=== PATIENT | female | born 2000 | race Caucasian/White ===

== ENCOUNTER 2019-03-18 15:52 | Inpatient (IN) ==
[2019-03-18 16:37] LABS: Basophils # (auto) 0.06 K/uL (0-0.2); Basophils % (auto) 1.1 %; Eosinophils # (auto) 0.31 K/uL (0-0.5); Eosinophils % (auto) 5.5 %; Hematocrit (blood only) 39.5 % (37-47); Hemoglobin 13.4 g/dL (12.0-16.0); Immature Granulocytes # (auto) 0.01 K/uL (0.00-0.02); Immature Granulocytes % (auto) 0.2 %; Lymphocytes # (auto) 1.66 K/uL (1.2-3.4); Lymphocytes % (auto) 29.6 %; Mean Corpuscular Hemoglobin 34.2 pg (25-34); Mean Corpuscular Hgb Conc 33.9 g/dL (32-36); Mean Corpuscular Volume 100.8 fL (80-100); Mean Platelet Volume 10.4 fL (7.4-10.4); Monocytes # (auto) 0.72 K/uL (0.11-0.59); Monocytes % (auto) 12.8 %; Neutrophils # (auto) 2.85 K/uL (1.4-6.5); Neutrophils % (auto) 50.8 %; Platelet Count 212 K/uL (130-400); RDW Coefficient of Variation 11.9 % (11.5-14.5); RDW Standard Deviation 43.4 fL (36.4-46.3); Red Blood Count 3.92 M/uL (4.2-5.4); White Blood Count 5.61 K/uL (4.8-10.8)
[2019-03-18 16:54] LABS: Alanine Aminotransferase 112 U/L (12-78); Albumin Level 3.5 gm/dl (3.4-5.0); Aspartate Aminotransferase 16 U/L (15-37); BUN Creatinine Ratio 25.2 (10-20); Blood Urea Nitrogen 15 mg/dl (7-18); Calcium 8.4 mg/dl (8.5-10.1); Carbon Dioxide 26 mmol/L (21-32); Chloride 108 mmol/L (98-107); Creatinine Clr Calc Pharmacy 115.4 ml/min; Est GFR (African American) > 150.0; Est GFR (Non-African American) 130.7; Glucose 81 mg/dl (70-99); Potassium 4.2 mmol/L (3.5-5.1); Sodium 138 mmol/L (136-145)
[2019-03-18 16:56] LABS: Acetaminophen 88 ug/ml (10-30); Salicylate < 1.7 mg/dl (2.8-20)
[2019-03-18] MEDS ORDERED: ACETYLCYSTEINE IV ONE ×3 (17:01→21:00)
[2019-03-18] MEDS ORDERED: DEXTROSE 5% IV ONE ×3 (17:01→21:00)
[2019-03-18 17:04] LABS: Albumin Globulin Ratio 1.2 (0.9-2); Alkaline Phosphatase 82 U/L (45-117); Bilirubin,Total 0.5 mg/dl (0.2-1); Globulin 2.9 gm/dl (2.5-4.0); Total Protein 6.4 gm/dl (6.4-8.2)
[2019-03-18 17:28] LABS: Pregnancy Test, Urine Negative (Negative)
[2019-03-18 17:32] LABS: Appearance Urine Clear (Clear); Bilirubin Urine Negative (Negative); Blood Urine Negative (Negative); Color Urine Yellow; Glucose Urine UA Negative (Negative); Ketones Urine Negative (Negative); Leukocyte Esterase Urine Negative (Negative); Nitrite Urine Negative (Negative); Protein Urine Negative (Negative); Specific Gravity Urine >= 1.030 (1.000-1.030); Urobilinogen Urine Negative (Negative)
[2019-03-18 17:50] LABS: Amphetamines+Metham, Urine Pos (Neg); Barbiturates, Urine Neg (Neg); Benzodiazepine, Urine Neg (Neg); Cocaine, Urine Neg (Neg); MDMA (Ecstacy), Urine Neg (Neg); Methadone, Urine Neg (Neg); Opiate, Urine Neg (Neg); Phencyclidine, Urine Neg (Neg)
--- NOTE | 2019-03-18 18:21 | History & Physical Report ---
Date of Service March 18, 2019 Assessment & Plan (1) Overdose by acetaminophen: Ms Fernanda Angeles is a 18 year old woman who comes in today after an overdose on acetaminophen and possibly naproxen Overdose Not clear what and how much she took patient refuses to give truthful answers Acetaminophen level elevated at 88, ASA negative, Urine tox screen positive for amphetamines and marijuana Patient does admit to taking acetaminophen in an effort to harm herself but tells me she only took 3-5 though mom thinks it may be more ALT elevated to 112 AST WNL ED consulted poison control and appropriately started patient on NAC, will receive loading dose here in ED and will follow 21 hour regimen moving forward First dose 150 mg/kg to be administered over one hour Second dose immediately following 50mg/kg to be administered over 4 hours Final dose 100 mg/kg to be administered over 16 hours Will continue to check LFT's to make sure she does not need further treatment. EKG ordered Depression/Suicide Attempt Appears to be a suicide attempt, on Suicide precautions Denies current SI Psychiatry consulted to evaluate patient when medically stable, likely tomorrow F/E/N:REgular diet DVT PPx: Lovenox Dispo: Med/Surg until medically stable and off NAC then possible admission to psychiatry based on their recommendations. History of Present Illness Chief Complaint: Tylenol Overdose Primary Care Provider: NO PCP Fernanda Angeles is a 18 year old young woman with a PMH significant for depression who presents today for an intentional drug overdose. Patient very reticent to speak, not answering in more than one or two words. She tells me she took "about five" tylenol. Denies anything else, denies any history of substance use, tells me she feels fine and wants to go home. She does admit to trying to harm herself, she said that she is getting over a break up with her long time boyfriend and took the pills to try to hurt herself. She is not sure if she wanted to kill herself. She initally did not tell anyone but then told her mother. She tells me she feels safe at home and that she wants her mom involved in her care. I spoke to the patient's mother separately from the patient and she tells me that she took aleve and ASA as well as tylenol and that she also uses drugs regularly including methamphetamine, benzos and marijuana. She also has a history of depression initially diagnosed while inpatient at [facility] when she was [age] in the fall of 2016. She at that time was physically threatening and aggressive with her mother and required inpatient treatment for being out of her head. She was sent home with a script for lexapro but refused to take these because they made her tired. She has no hisory of previous suicide attempts or any self harm. The hospitalization mentioned above is her only one. She has no other past medical history and takes only control. She was living with boyfriend until recently, but apparently has been using methamphetamine and being promiscuous with other men while boyfriend was at work and they broke up. She is now living with Mom. Allergies Allergy/AdvReac Type Severity Reaction Status Date / Time No Known Allergies Allergy Verified 03/18/19 16:24 Past Med/Surg History Medical History Depression Surgical History No pertinent past surgical history Family History Other No pertinent family history Review of Systems Review of Systems: Constitutional: No fevers, chills, sweats, Eyes: No vision issues ENMT: No problems reported, no congestion or rhinorrhea Resp: Breathing comfortably, no concerns Cardio: No chest pain, no palpitations, no presyncope/syncope GI: No belly pain, no N/V/D/C Integumentary: No rashes reported Psych: Endorses depression and feeling down over this breakup and trying to harm herself by taking pills. Physical Exam Physical Exam: Constitutional: Patient curled in a ball facing away from me declines wanting to participate in any exam agreed to me performing exam as long as she didn't have to move, exam is unfortunately limited Eyes: Pupils equal round and reactive to light and accomodation, Anicteric Sclerae, Respiratory: Chest expansion symmetric breathing rate normal, no respiratory distress lungs clear to auscultation Cardiovascular: Regular Rate and Rhythm, distal pulses intact, no murmurs rubs, skips, or gallops, No lower limb edema GI: Abdomen soft/nontender Psychiatric: Depressed mood and affect, psychomotor retardation, not tearful, Denies current SI or HI. Says she regrets doing what she did and just wants to go home with her mom. Results & Data Vital Signs (Past 12 Hours) Vital Signs Temp Pulse Pulse Resp BP BP Pulse Ox 03/18/19 17:30 74 17 107/69 99 03/18/19 17:00 86 17 100/73 98 03/18/19 16:30 86 16 97/65 L 97 03/18/19 16:06 36.3 C L 87 16 104/59 L 96 Supervising Physician Co-Signing Physician Notes I personally interviewed and examined the patient. I agree with history of present illness , physical exam and plan mentioned by medical records tech above, I also performed my own history taking and examination. Myself and Dr. Lugo together formulated the plan mentioned above. Past medical history and review of system has been obtained by myself I reviewed all pertinent labs and studies Reviewed current medications I discussed and formulated of the assessment and plan mentioned above. Please refer to the Summary mentioned below. 18 years old female with past medical history of psychiatric illnesses but no past medical history of suicidal attempt or suicidal ideation, recently broke up with her boyfriend, today she was texting her boyfriend and her mother, she kept saying she cannot do this she cannot live with this anymore as she was breaking up with her boyfriend, finally her mom told her that do not do anything wrong, she texted her mother it is too late. After that she kept texting the boyfriend but not the mother,, suddenly the boyfriend texted the mother that she has done something wrong and somebody needs to check on her. The mother called the neighbors who went to check on her and found empty bottles around her. She was brought to the ED with a suicide attempt, initially she said that she took only Tylenol but later on her urine drug screen was positive for amphetamines and marijuana mother stated that she possibly also took naproxen, Tylenol level was elevated at 88, ASA level was negative, ALT was elevated at 112, she was started on N-acetylcysteine, placed on suicide precautions, 2D echo was ordered to monitor QTC for fear of possibility that she ingested other stuff as well. Psych consult placed General Appearance: not in acute distress Eyes: normal Sclerae, extraocular muscle intact ENT: hearing grossly normal Neck: supple Respiratory/Chest: normal air entry bilateral ,no respiratory distress, no accessory muscle use Cardiovascular: regular rate, rhythm, no murmur Abdomen: non tender, soft, no masses Extremities: no edema musculoskeletal: no significant swelling or inflammation in any joint Neurologic/Psychiatric: Awake alert oriented times place and person moves all extremities sensation intact cranial nerves II-12 appear to be intact Skin: normal color, warm/dry, no rash Ella Coker MD, [facility] hospitalist group Resident Activity Tracking Resident Involvement: Resident Care Provided Care Provided: Adult Hospital Medicine
[2019-03-18] MEDS ORDERED: ACETYLCYSTEINE IV SCH (18:41)
[2019-03-18] MEDS ORDERED: DEXTROSE 5% IV SCH (18:41)
[2019-03-18] MEDS ORDERED: AcetylCYSTEINE IV 21 HR REGIMEN (>40KG) IV STA (20:20)
[2019-03-18] MEDS ORDERED: SODIUM CHLORIDE 0.9% 1000ML 1,000 ML IV ONE (20:20)
[2019-03-18] MEDS ORDERED: ENOXAPARIN INJ 40 MG/0.4 ML SYR SQ SCH (21:00)
[2019-03-19] MEDS ORDERED: DEXTROSE 5% IV ONE (01:15)
[2019-03-19] MEDS ORDERED: ACETYLCYSTEINE IV ONE (01:15)
--- NOTE | 2019-03-19 08:51 | Psychiatric Consultation ---
Date of Consultation March 19, 2019 Impression / Recommendations Impression 18-year-old uncooperative female with reported history of depression and substance abuse presently status post polydrug overdose on NAC protocol for elevated acetaminophen level and LFT elevation. Overdose appears likely a suicide attempt which has been reported by patient's mother and patient's own self-report per hospitalist admission note (she indicated that she had taken Tylenol in an effort to harm herself.) She has been consistently uncooperative and minimizing throughout her stay so far. She demonstrates impaired judgment and some mild behavioral dyscontrol on psychiatric interview today. As she is an unreliable historian, she will require at a minimum a period of monitoring to reduce her risk for further self-harm. She will likely require psychiatric hospitalization following medical clearance. As such, if she attempts to leave the hospital, we will pursue a 302 involuntary commitment order. She should be maintained on a one-to-one at all times. (1) Suicide attempt: (2) Overdose: Encounter type: initial encounter Injury intent: intentional self-harm Qualified Code(s): T50.902A - Poisoning by unspecified drugs, medicaments and biological substances, intentional self-harm, initial encounter Risk Factors Assessment Male: No : Yes Health Problems: No Substance Use Disorders: Yes Previous Attempt: No Previous Psychiatric Hospitalization: Yes CPT Code 63891 Psych History Identifying Data Fernanda is a 18-year-old female with a reported history of depression and substance abuse requiring 1 prior psychiatric hospitalization to the [facility], [place] in 2017 (reportedly for agitation) who is seen for psychiatric consultation status post polydrug overdose on 03/18/2019. Unfortunately patient is highly uncooperative with the interview today and most information is obtained from admission H&P. I did attempt to reach patient's mother, Kerrie, at [phone] to expand database but was unable to reach her at time of this writing. Chief Complaint " I am fucking fine and I am getting out of here. I am not talking about it anymore". History of Present Illness Per hospitalist admission H&P 03/18/2019 Fernanda Angeles is a 18 year old young woman with a PMH significant for depression who presents today for an intentional drug overdose. Patient very reticent to speak, not answering in more than one or two words. She tells me she took "about five" tylenol. Denies anything else, denies any history of substance use, tells me she feels fine and wants to go home. She does admit to trying to harm herself, she said that she is getting over a break up with her long time boyfriend and took the pills to try to hurt herself. She is not sure if she wanted to kill herself. She initally did not tell anyone but then told her mother. She tells me she feels safe at home and that she wants her mom involved in her care. I spoke to the patient's mother separately from the patient and she tells me that she took aleve and ASA as well as tylenol and that she also uses drugs regularly including methamphetamine, benzos and marijuana. She also has a history of depression initially diagnosed while inpatient at [facility] when she was [age] in the fall of 2016. She at that time was physically threatening and aggressive with her mother and required inpatient treatment for being out of her head. She was sent home with a script for lexapro but refused to take these because they made her tired. She has no hisory of previous suicide attempts or any self harm. The hospitalization mentioned above is her only one. She has no other past medical history and takes only control. She was living with boyfriend until recently, but apparently has been using methamphetamine and being promiscuous with other men while boyfriend was at work and they broke up. She is now living with Mom. Patient did have an elevated Tylenol level at 88 at 1618 on 03/18/2019 as well as a small LFT elevation with ALT of 112. She is being treated with NAC protocol. She had a mildly prolonged QTc at 489. Toxicology panel positive for amphetamines and marijuana. Urine test negative. Per Dr. Coker's documentation on admission, patient has no known prior history of suicide attempt. Earlier on day of presentation had been texting her mother and boyfriend indicating that she cannot live like this anymore and was breaking up with her boyfriend. Boyfriend later texted mother that patient had done something wrong and needed checked on. Mother called neighbors to check on her and reportedly found empty bottles around her at which point she was brought to ED. Initially patient stated she took only Tylenol. Mother indicated that she possibly also took naproxen. On interview this morning patient is extremely uncooperative. She repeatedly turns away from me in her bed. She is largely noncommunicative apart from intermittent yelling stating that she does not want to talk about it anymore, that she has already talked about these things with other people, that she is fine, that she is getting out of here, that she wants her cell phone and her mother. She uses a fair amount of profanity while she is yelling and demonstrates some behavioral dyscontrol slamming objects and drawers nearby in an apparent display of anger. She refused to answer my questions about her intent in taking the overdose. She refused to answer questions about ongoing suicidality. She refused to answer any questions about circumstances at home, physical symptomatology, or thoughts of how she might be helped. She refused to answer any questions about substance abuse. She refused to answer any questions about her past mental health history. Shortly after I left her room I was contacted by the psychiatric liaison nurse who indicated that nursing was calling about the patient indicating that she was threatening to leave and refusing her Mucomyst. I attempted to reach patient's mother via phone but unfortunately was unable to contact her directly. Past Psychiatric History Current Psychiatric Diagnosis: None Outpatient Services: None known Previous Psych Admissions: 1 prior psychiatric hospitalization in 2017 at the [facility] [place], possibly for agitation associated with substance abuse. Started on Lexapro but reportedly noncompliant Describe Attempts in the Past: None known Past Medication Trials: Lexapro reportedly started at the [facility] [place] in 2017 however she was noncompliant Additional Notes: Patient is not cooperative in providing psychiatric history Allergies Allergy/AdvReac Type Severity Reaction Status Date / Time No Known Allergies Allergy Verified 03/18/19 16:24 Home Medications Home Medications Medication Instructions Recorded Confirmed Type Unobtainable 03/19/19 03/19/19 History Family History Unknown. Patient refuses to participate Substance Abuse History Patient has a known history of polysubstance abuse. She is unwilling to describe this morning. UDS positive for amphetamines and marijuana on presentation. Personal History Living Arrangements Comments: Reportedly recently living with boyfriend, now living with mother Marital Status: Single Beliefs That Will Affect Care: None Psychological Trauma History Comment: Unknown Patient History Medical History Depression Surgical History No pertinent past surgical history Family History Other No pertinent family history Social History Preferred Language: Occitan Communication Ability: Effective Electrician Sound Required: No Beliefs That Will Affect Care: None Current Living Situation: Parent Other Information That Helps Us Care for You: No Feels Safe at Home: Yes Safety Concerns: Feels Safe At This Time Smoking Status: Current every day smoker Tobacco Type: e-cigarettes ; Do You Dip or Chew Tobacco: No ; Second Hand Exposure: No ; Tobacco Cessation Education Requested by Patient: No Hx Alcohol Use: No (Denies) Hx Substance Use: No (Denies) Physical Exam Psychiatric: Orientation: + guarded; + uncooperative Apperance: + disheveled Eye Contact: + poor eye contact Motor Behavior: no abnormal motor movements Minimal spontaneous speech. She does yell at times at which point speech is clear, loud Affect: + angry affect She refuses to characterize mood Thought Process: + perseveration and + concrete thought process Thought Content: + preoccupation (Focused on going home. Minimizes care needs) She refuses to respond to questions about suicidality No outward evidence of response to internal stim however cannot be ruled out at this time Cognition: + attention not intact Unable to evaluate based on level of participation Appears poor Judgement: + poor judgement Vital Signs (Past 24 Hours): Last Vital Signs Temp 36.4 C L 03/18/19 23:28 Pulse 78 03/19/19 07:49 Resp 14 03/19/19 07:49 BP 109/73 03/19/19 07:49 Pulse Ox 98 03/19/19 07:49 Review of Systems Patient is non-participatory in review of systems Results & Data Laboratory Results Laboratory Results - last 24 hr 03/18/19 03/18/19 03/18/19 16:18 16:18 16:18 WBC 5.61 RBC 3.92 L Hgb 13.4 Hct 39.5 MCV 100.8 H MCH 34.2 H MCHC 33.9 RDW Std Deviation 43.4 RDW Coeff of Loly 11.9 Plt Count 212 MPV 10.4 Immature Gran % (Auto) 0.2 Neut % (Auto) 50.8 Lymph % (Auto) 29.6 [place] % (Auto) 12.8 Eos % (Auto) 5.5 Baso % (Auto) 1.1 Immature Gran # (Auto) 0.01 Neut # (Auto) 2.85 Lymph # (Auto) 1.66 [place] # (Auto) 0.72 H Eos # (Auto) 0.31 Baso # (Auto) 0.06 Sodium 138 Potassium 4.2 Chloride 108 H Carbon Dioxide 26 Anion Gap 4.0 BUN 15 Creatinine 0.62 Est Cr Clr Drug Dosing 115.4 Est GFR ( Amer) > 150.0 Est GFR (Non-Af Amer) 130.7 BUN/Creatinine Ratio 25.2 H Glucose 81 Calcium 8.4 L Total Bilirubin 0.5 AST 16 ALT 112 H Alkaline Phosphatase 82 Total Protein 6.4 Albumin 3.5 Globulin 2.9 Albumin/Globulin Ratio 1.2 TSH 1.050 Urine Color Urine Appearance Urine pH Ur Specific [place] Urine Protein Urine Glucose (UA) Urine Ketones Urine Blood Urine Nitrite Urine Bilirubin Urine Urobilinogen Ur Leukocyte Esterase Urine Test Salicylates < 1.7 L Urine Opiates Screen Ur Methadone, Qual Acetaminophen 88 H Urine Barbiturates Ur Phencyclidine (PCP) U Amphetamines Confirm U Amphetamin/Meth Scrn U Methamphetamin Confrm MDMA (Ecstasy) Screen U Benzodiazepines Scrn Ur Cocaine Metabolite U Marijuana (THC) Screen U Marijuana THC Carboxy Drug Screen Comment Ethyl Alcohol mg/dL 03/18/19 03/18/19 03/18/19 16:18 17:00 17:00 WBC RBC Hgb Hct MCV MCH MCHC RDW Std Deviation RDW Coeff of Loly Plt Count MPV Immature Gran % (Auto) Neut % (Auto) Lymph % (Auto) [place] % (Auto) Eos % (Auto) Baso % (Auto) Immature Gran # (Auto) Neut # (Auto) Lymph # (Auto) [place] # (Auto) Eos # (Auto) Baso # (Auto) Sodium Potassium Chloride Carbon Dioxide Anion Gap BUN Creatinine Est Cr Clr Drug Dosing Est GFR ( Amer) Est GFR (Non-Af Amer) BUN/Creatinine Ratio Glucose Calcium Total Bilirubin AST ALT Alkaline Phosphatase Total Protein Albumin Globulin Albumin/Globulin Ratio TSH Urine Color Urine Appearance Urine pH Ur Specific [place] Urine Protein Urine Glucose (UA) Urine Ketones Urine Blood Urine Nitrite Urine Bilirubin Urine Urobilinogen Ur Leukocyte Esterase Urine Test Negative Salicylates Urine Opiates Screen Neg Ur Methadone, Qual Neg Acetaminophen Urine Barbiturates Neg Ur Phencyclidine (PCP) Neg U Amphetamines Confirm U Amphetamin/Meth Scrn Pos H U Methamphetamin Confrm MDMA (Ecstasy) Screen Neg U Benzodiazepines Scrn Neg Ur Cocaine Metabolite Neg U Marijuana (THC) Screen Pos H U Marijuana THC Carboxy Drug Screen Comment Ethyl Alcohol mg/dL < 3.0 03/18/19 03/18/19 17:00 17:00 WBC RBC Hgb Hct MCV MCH MCHC RDW Std Deviation RDW Coeff of Loyl Plt Count MPV Immature Gran % (Auto) Neut % (Auto) Lymph % (Auto) [place] % (Auto) Eos % (Auto) Baso % (Auto) Immature Gran # (Auto) Neut # (Auto) Lymph # (Auto) [place] # (Auto) Eos # (Auto) Baso # (Auto) Sodium Potassium Chloride Carbon Dioxide Anion Gap BUN Creatinine Est Cr Clr Drug Dosing Est GFR ( Amer) Est GFR (Non-Af Amer) BUN/Creatinine Ratio Glucose Calcium Total Bilirubin AST ALT Alkaline Phosphatase Total Protein Albumin Globulin Albumin/Globulin Ratio TSH Urine Color Yellow Urine Appearance Clear Urine pH 6.0 Ur Specific [place] >= 1.030 Urine Protein Negative Urine Glucose (UA) Negative Urine Ketones Negative Urine Blood Negative Urine Nitrite Negative Urine Bilirubin Negative Urine Urobilinogen Negative Ur Leukocyte Esterase Negative Urine Test Salicylates Urine Opiates Screen Ur Methadone, Qual Acetaminophen Urine Barbiturates Ur Phencyclidine (PCP) U Amphetamines Confirm Pending U Amphetamin/Meth Scrn U Methamphetamin Confrm Pending MDMA (Ecstasy) Screen U Benzodiazepines Scrn Ur Cocaine Metabolite U Marijuana (THC) Screen U Marijuana THC Carboxy Pending Drug Screen Comment Pending Ethyl Alcohol mg/dL Medications Administered Enoxaparin Sodium (Lovenox) 40 mg SQ Q24H MARIIA Stop: 04/17/19 20:59 Last Admin: 03/18/19 21:45 Dose: Not Given Documented by: [id number] Acetylcysteine 5,120 mg/ (Dextrose) 1,025.6 mls @ 62.5 mls/hr IV 0115 ONE; Protocol Stop: 03/19/19 17:39 Last Infusion: 03/19/19 08:15 Dose: 0 mls/hr Documented by: [id number] Infusion: 03/19/19 06:07 Dose: 62.5 mls/hr Documented by: [id number] Admin: 03/18/19 23:21 Dose: 62.5 mls/hr Documented by: [id number] Coding Level of Care Code 33525 [facility] Intl Hosp Care Lvl 2 Diagnoses Suicide attempt T14.91XA Overdose T50.902A Encounter type: initial encounter Injury intent: intentional self-harm Time Spent (min) 60
[2019-03-19 11:45] LABS: INR 1.2 (0.9-1.1); Prothrombin Time 12.1 Seconds (9.0-12.0)
--- NOTE | 2019-03-19 12:07 | Emergency Department Note ---
Entered by Macy Cummins acting as a scribe for Sarabjit Mcginnis MD History of Present Illness General Chief complaint: Overdose (Intentional) Stated complaint: MENTAL HEALTH Time Seen by Provider: 03/18/19 15:59 Source: patient and family (mother) History of Present Illness Onset (ago): minute(s) (prior to arrival) Location: head (general) Pain Consistency: + other (episode) Quality: + other (intentional overdose) Associated symptoms: + denies other symptoms (abdominal pain, previous suicide attempts), + loss of appetite and + other (sleeping less than normal) The patient is a 18 year old female who presents to the Emergency Room with complaints of an episode of intentional overdose just prior to arrival. The patient states she tried to hurt herself by taking aspirin and Tylenol, approximately 5 pills each. She denies previous attempts to hurt herself. The patient's mother states this is likely due the patient's recent breakup with her boyfriend. The patient's mother reports the patient has a history of depression, and is prescribed medication but refuses to take them. The patient reports she is sleeping and eating less than normal. She denies alcohol and drug use. She denies abdominal pain. The patient denies access to any knives, weapons, or guns. She states her last normal menstrual period occurred last week. Home Medications Home Medications Medication Instructions Recorded Confirmed Type Unobtainable 03/19/19 03/19/19 History Allergies Allergy/AdvReac Type Severity Reaction Status Date / Time No Known Allergies Allergy Verified 03/18/19 16:24 Past Med/Surg History Medical History Depression Surgical History No pertinent past surgical history Family History Other No pertinent family history Social History Preferred Language: Romansh Communication Ability: Effective [employer] Teacher Required: No Beliefs That Will Affect Care: None Current Living Situation: Parent Other Information That Helps Us Care for You: No Feels Safe at Home: Yes Safety Concerns: Feels Safe At This Time Smoking Status: Current every day smoker Tobacco Type: e-cigarettes ; Do You Dip or Chew Tobacco: No ; Second Hand Exposure: No ; Tobacco Cessation Education Requested by Patient: No Hx Alcohol Use: No (Denies) Hx Substance Use: No (Denies) Review of Systems See HPI for pertinent positives & negatives. and A total of 10 systems reviewed and were otherwise negative Physical Exam Vital Signs Vital Signs - 24 hr 03/18/19 16:06 03/18/19 16:30 03/18/19 17:00 Temperature 36.3 C L Temperature Source Oral Pulse Rate 87 Pulse Rate [Apical] 86 86 Pulse Rhythm Regular Pulse Rhythm [Apical] Regular Regular Pulse Strength Normal Respiratory Rate 16 16 17 Respiratory Effort / Characteristics Non-Labored Spontaneous Non-Labored Spontaneous Non-Labored Spontaneous Respiratory Depth Normal Normal Normal Respiratory Pattern Regular Regular Regular Blood Pressure 104/59 L Blood Pressure [Right Arm] 97/65 L 100/73 Blood Pressure Mean 74 Blood Pressure Mean [Right Arm] 75 82 Blood Pressure Position Lying Pulse Oximetry 96 97 98 Oxygen Delivery Method Room Air Room Air Room Air Sepsis Recent Fever Within 48 Hours No Sepsis New/Unexplained Change in Mental Status No Sepsis Action Taken by Nursing No Action Required 03/18/19 17:30 03/18/19 18:30 Temperature Temperature Source Pulse Rate Pulse Rate [Apical] 74 107 H Pulse Rhythm Pulse Rhythm [Apical] Regular Pulse Strength Respiratory Rate 17 18 Respiratory Effort / Characteristics Non-Labored Spontaneous Respiratory Depth Normal Respiratory Pattern Regular Blood Pressure Blood Pressure [Right Arm] 107/69 99/70 L Blood Pressure Mean Blood Pressure Mean [Right Arm] 81 79 Blood Pressure Position Pulse Oximetry 99 96 Oxygen Delivery Method Room Air Room Air Sepsis Recent Fever Within 48 Hours Sepsis New/Unexplained Change in Mental Status Sepsis Action Taken by Nursing GENERAL: Well nourished, non-toxic. EYE EXAM: Normal conjunctiva. PERRL, no anisocoria and EOM's grossly intact w/o pain. OROPHARYNX: Moist mucus membranes. Grossly normal dentition. NECK: Supple, no nuchal rigidity, no adenopathy, non-tender. No signs of meningismus. LUNGS: Clear to auscultation. Normal chest wall mechanics. HEART: NSR, no MRG. ABDOMEN: Abdomen soft, non-tender, normo-active bowel sounds, no masses, no rebound or guarding. BACK: No CVA TTP. SKIN: No rashes and no bruising. UPPER EXTREMITIES: Upper extremities are grossly normal. NEURO EXAM: A&O x3, cranial nerves II-XII grossly intact, normal speech, moves all 4 extremities on command w/o issue. PSYCH: Flat affect, Positive SI, tearful, depressed mood. No HI or AVH. Course Course 1606: Past medical records reviewed. The patient was evaluated in room A07. A complete history and physical exam was performed. 1700: I spoke with poison control. The patient will be treated as a Tylenol overdose. 1710: Upon reevaluation, I discussed findings and results with the patient and her mother. They verbalized agreement of the treatment plan. I spoke with Dr. Sena of the [facility] Hospitalist Service. The patient will be evaluated for further management and care. Administered Medications Enoxaparin Sodium (Lovenox) 40 mg SQ Q24H MARIIA Stop: 04/17/19 20:59 Last Admin: 03/18/19 21:45 Dose: Not Given Documented by: [id number] Acetylcysteine 5,120 mg/ (Dextrose) 1,025.6 mls @ 62.5 mls/hr IV 0115 ONE; Protocol Stop: 03/19/19 17:39 Last Infusion: 03/19/19 09:51 Dose: 62.5 mls/hr Documented by: [id number] Infusion: 03/19/19 09:49 Dose: 62.5 mls/hr Documented by: [id number] Infusion: 03/19/19 08:15 Dose: 0 mls/hr Documented by: [id number] Infusion: 03/19/19 06:07 Dose: 62.5 mls/hr Documented by: [id number] Admin: 03/18/19 23:21 Dose: 62.5 mls/hr Documented by: [id number] Discontinued Medications Acetylcysteine (Acetadote Iv 21 Hour Regimen (>40kg)) 1 ea IV NOW STA; Protocol Stop: 03/18/19 20:21 Last Admin: 03/19/19 00:26 Dose: 1 ea Documented by: [id number] Acetylcysteine 7,680 mg/ (Dextrose) 238.4 mls @ 200 mls/hr IV ONCE ONE Stop: 03/18/19 18:12 Last Admin: 03/18/19 17:43 Dose: Not Given Documented by: [id number] Acetylcysteine 7,680 mg/ (Dextrose) 288.4 mls @ 288 mls/hr IV ONCE ONE Stop: 03/18/19 18:30 Last Infusion: 03/18/19 18:58 Dose: 0 mls/hr Documented by: [id number] Admin: 03/18/19 17:41 Dose: 288 mls/hr Documented by: [id number] Acetylcysteine 2,560 mg/ (Dextrose) 512.8 mls @ 125 mls/hr IV TODAY@[address] [place] [address]; Protocol Stop: 03/18/19 22:48 Last Infusion: 03/18/19 21:38 Dose: 0 mls/hr Documented by: [id number] Admin: 03/18/19 18:58 Dose: 125 mls/hr Documented by: [id number] Sodium Chloride (Nss 1000ml) 1,000 mls @ 999 mls/hr IV .Q1H1M ONE Stop: 03/18/19 21:20 Last Infusion: 03/18/19 23:04 Dose: 0 mls/hr Documented by: [id number] Admin: 03/18/19 21:45 Dose: 999 mls/hr Documented by: [id number] Critical Care Time Critical Care Time: Yes Total Critical Care Time: 52 I have personally spent 52 minutes of critical care time in direct management of this patient. This includes bedside care, interpretation of diagnostic studies, and testing, discussion with consultants, patient, and family members, and other require inpatient management activities with regard to concern for possible Tylenol overdose as the patient did have an elevated Tylenol level was not forthcoming with the amount of Tylenol she had taken and her ALT was elevated.. This 52 minutes is in excess of all separately billable procedures. Medical Decision Making Differential Diagnosis Differential diagnoses considered include mood disorder, infection, hypoglycemia, electrolyte abnormalities, cardiac sources, intracerebral event, toxicologic, neurologic, as well as others. Medical Records Attestation: I reviewed the patient's medical records. Home Medications Current Medication List: was personally reviewed by me Laboratory Data Attestation: I reviewed the patient's lab results. Result diagrams: 03/18/19 16:18 03/18/19 16:18 Lab Results 03/18/19 03/18/19 03/18/19 Range/Units 16:18 16:18 16:18 WBC 5.61 (4.8-10.8) K/uL RBC 3.92 L (4.2-5.4) M/uL Hgb 13.4 (12.0-16.0) g/dL Hct 39.5 (37-47) % MCV 100.8 H (80-100) fL MCH 34.2 H (25-34) pg MCHC 33.9 (32-36) g/dL RDW Std Deviation 43.4 (36.4-46.3) fL RDW Coeff of Loly 11.9 (11.5-14.5) % Plt Count 212 (130-400) K/uL MPV 10.4 (7.4-10.4) fL Immature Gran % (Auto) 0.2 % Neut % (Auto) 50.8 % Lymph % (Auto) 29.6 % Parker % (Auto) 12.8 % Eos % (Auto) 5.5 % Baso % (Auto) 1.1 % Immature Gran # (Auto) 0.01 (0.00-0.02) K/uL Neut # (Auto) 2.85 (1.4-6.5) K/uL Lymph # (Auto) 1.66 (1.2-3.4) K/uL Parker # (Auto) 0.72 H (0.11-0.59) K/uL Eos # (Auto) 0.31 (0-0.5) K/uL Baso # (Auto) 0.06 (0-0.2) K/uL Sodium 138 (136-145) mmol/L Potassium 4.2 (3.5-5.1) mmol/L Chloride 108 H (98-107) mmol/L Carbon Dioxide 26 (21-32) mmol/L Anion Gap 4.0 (3-11) BUN 15 (7-18) mg/dl Creatinine 0.62 (0.6-1.2) mg/dl Est Cr Clr Drug Dosing 115.4 ml/min Est GFR ( Amer) > 150.0 Est GFR (Non-Af Amer) 130.7 BUN/Creatinine Ratio 25.2 H (10-20) Glucose 81 (70-99) mg/dl Calcium 8.4 L (8.5-10.1) mg/dl Total Bilirubin 0.5 (0.2-1) mg/dl AST 16 (15-37) U/L ALT 112 H (12-78) U/L Alkaline Phosphatase 82 (45-117) U/L Total Protein 6.4 (6.4-8.2) gm/dl Albumin 3.5 (3.4-5.0) gm/dl Globulin 2.9 (2.5-4.0) gm/dl Albumin/Globulin Ratio 1.2 (0.9-2) TSH 1.050 (0.300-4.500) uIu/ml Urine Color Urine Appearance (Clear) Urine pH (4.5-7.5) Ur Specific Saxon (1.000-1.030) Urine Protein (Negative) Urine Glucose (UA) (Negative) Urine Ketones (Negative) Urine Blood (Negative) Urine Nitrite (Negative) Urine Bilirubin (Negative) Urine Urobilinogen (Negative) Ur Leukocyte Esterase (Negative) Urine Test (Negative) Salicylates < 1.7 L (2.8-20) mg/dl Urine Opiates Screen (Neg) Ur Methadone, Qual (Neg) Acetaminophen 88 H (10-30) ug/ml Urine Barbiturates (Neg) Ur Phencyclidine (PCP) (Neg) U Amphetamin/Meth Scrn (Neg) MDMA (Ecstasy) Screen (Neg) U Benzodiazepines Scrn (Neg) Ur Cocaine Metabolite (Neg) U Marijuana (THC) Screen (Neg) Ethyl Alcohol mg/dL (0-3) mg/dl 03/18/19 03/18/19 03/18/19 Range/Units 16:18 17:00 17:00 WBC (4.8-10.8) K/uL RBC (4.2-5.4) M/uL Hgb (12.0-16.0) g/dL Hct (37-47) % MCV (80-100) fL MCH (25-34) pg MCHC (32-36) g/dL RDW Std Deviation (36.4-46.3) fL RDW Coeff of Loly (11.5-14.5) % Plt Count (130-400) K/uL MPV (7.4-10.4) fL Immature Gran % (Auto) % Neut % (Auto) % Lymph % (Auto) % Parker % (Auto) % Eos % (Auto) % Baso % (Auto) % Immature Gran # (Auto) (0.00-0.02) K/uL Neut # (Auto) (1.4-6.5) K/uL Lymph # (Auto) (1.2-3.4) K/uL Parker # (Auto) (0.11-0.59) K/uL Eos # (Auto) (0-0.5) K/uL Baso # (Auto) (0-0.2) K/uL Sodium (136-145) mmol/L Potassium (3.5-5.1) mmol/L Chloride (98-107) mmol/L Carbon Dioxide (21-32) mmol/L Anion Gap (3-11) BUN (7-18) mg/dl Creatinine (0.6-1.2) mg/dl Est Cr Clr Drug Dosing ml/min Est GFR ( Amer) Est GFR (Non-Af Amer) BUN/Creatinine Ratio (10-20) Glucose (70-99) mg/dl Calcium (8.5-10.1) mg/dl Total Bilirubin (0.2-1) mg/dl AST (15-37) U/L ALT (12-78) U/L Alkaline Phosphatase (45-117) U/L Total Protein (6.4-8.2) gm/dl Albumin (3.4-5.0) gm/dl Globulin (2.5-4.0) gm/dl Albumin/Globulin Ratio (0.9-2) TSH (0.300-4.500) uIu/ml Urine Color Urine Appearance (Clear) Urine pH (4.5-7.5) Ur Specific Saxon (1.000-1.030) Urine Protein (Negative) Urine Glucose (UA) (Negative) Urine Ketones (Negative) Urine Blood (Negative) Urine Nitrite (Negative) Urine Bilirubin (Negative) Urine Urobilinogen (Negative) Ur Leukocyte Esterase (Negative) Urine Test Negative (Negative) Salicylates (2.8-20) mg/dl Urine Opiates Screen Neg (Neg) Ur Methadone, Qual Neg (Neg) Acetaminophen (10-30) ug/ml Urine Barbiturates Neg (Neg) Ur Phencyclidine (PCP) Neg (Neg) U Amphetamin/Meth Scrn Pos H (Neg) MDMA (Ecstasy) Screen Neg (Neg) U Benzodiazepines Scrn Neg (Neg) Ur Cocaine Metabolite Neg (Neg) U Marijuana (THC) Screen Pos H (Neg) Ethyl Alcohol mg/dL < 3.0 (0-3) mg/dl 03/18/19 Range/Units 17:00 WBC (4.8-10.8) K/uL RBC (4.2-5.4) M/uL Hgb (12.0-16.0) g/dL Hct (37-47) % MCV (80-100) fL MCH (25-34) pg MCHC (32-36) g/dL RDW Std Deviation (36.4-46.3) fL RDW Coeff of Loly (11.5-14.5) % Plt Count (130-400) K/uL MPV (7.4-10.4) fL Immature Gran % (Auto) % Neut % (Auto) % Lymph % (Auto) % Parker % (Auto) % Eos % (Auto) % Baso % (Auto) % Immature Gran # (Auto) (0.00-0.02) K/uL Neut # (Auto) (1.4-6.5) K/uL Lymph # (Auto) (1.2-3.4) K/uL Parker # (Auto) (0.11-0.59) K/uL Eos # (Auto) (0-0.5) K/uL Baso # (Auto) (0-0.2) K/uL Sodium (136-145) mmol/L Potassium (3.5-5.1) mmol/L Chloride (98-107) mmol/L Carbon Dioxide (21-32) mmol/L Anion Gap (3-11) BUN (7-18) mg/dl Creatinine (0.6-1.2) mg/dl Est Cr Clr Drug Dosing ml/min Est GFR ( Amer) Est GFR (Non-Af Amer) BUN/Creatinine Ratio (10-20) Glucose (70-99) mg/dl Calcium (8.5-10.1) mg/dl Total Bilirubin (0.2-1) mg/dl AST (15-37) U/L ALT (12-78) U/L Alkaline Phosphatase (45-117) U/L Total Protein (6.4-8.2) gm/dl Albumin (3.4-5.0) gm/dl Globulin (2.5-4.0) gm/dl Albumin/Globulin Ratio (0.9-2) TSH (0.300-4.500) uIu/ml Urine Color Yellow Urine Appearance Clear (Clear) Urine pH 6.0 (4.5-7.5) Ur Specific Saxon >= 1.030 (1.000-1.030) Urine Protein Negative (Negative) Urine Glucose (UA) Negative (Negative) Urine Ketones Negative (Negative) Urine Blood Negative (Negative) Urine Nitrite Negative (Negative) Urine Bilirubin Negative (Negative) Urine Urobilinogen Negative (Negative) Ur Leukocyte Esterase Negative (Negative) Urine Test (Negative) Salicylates (2.8-20) mg/dl Urine Opiates Screen (Neg) Ur Methadone, Qual (Neg) Acetaminophen (10-30) ug/ml Urine Barbiturates (Neg) Ur Phencyclidine (PCP) (Neg) U Amphetamin/Meth Scrn (Neg) MDMA (Ecstasy) Screen (Neg) U Benzodiazepines Scrn (Neg) Ur Cocaine Metabolite (Neg) U Marijuana (THC) Screen (Neg) Ethyl Alcohol mg/dL (0-3) mg/dl Blood Pressure Blood Pressure Findings: Low blood pressure Blood Pressure Disposition: further management by hospitalist ANITA Narrative Patient was seen and evaluated the bedside with her mother. The patient was not very forthcoming but did relate that she took approximately 5 aspirin as well as 5 Tylenol. The patient did take this in an attempt to harm her self. The patient did have blood work completed. The patient did have concern for elevated ALT as well as a slightly elevated Tylenol level. Given this concern I did speak with poison control who recommended start of N-acetylcysteine. Given this acute concern and the patient's unwillingness to be forthcoming with the amount of Tylenol or aspirin that she took as well as what time she took it we will treat presumptively as a Tylenol overdose for acute treatment. I did speak the on-call hospitalist who agreed to further evaluate treat the patient. Patient subsequently admitted to the medicine service. Impression & Plan Tylenol overdose, Overdose, Elevated alanine aminotransferase (ALT) level, Suicide attempt Discharge Plan Visit Data *Final* Discharge Date/Time: 03/18/19 19:53 Chief Complaint: Overdose (Intentional) Stated Complaint: MENTAL HEALTH ED Provider: Sarabjit Mcginnis Discharge Problem: Tylenol overdose, Overdose, Elevated alanine aminotransferase (ALT) level, Suicide attempt Patient Disposition: Admitted As Inpatient Discharge Instructions Interventions: ED Discharge Assessment Last Done: 03/18/19 19:53 Discharge Problem: Tylenol overdose Qualifiers: Encounter type: initial encounter Injury intent: intentional self-harm Quali fied Code(s): T39.1X2A - Poisoning by 4-Aminophenol derivatives, intentional self-harm, initial encounter Overdose Qualifiers: Encounter type: initial encounter Injury intent: intentional self-harm Qualified Code(s): T50.902A - Poisoning by unspecified drugs, medicaments and biological substances, intentional self-harm, initial encounter The scribe's documentation has been prepared under my direction and personally reviewed by me in its entirety. I confirm that the note above accurately reflects all work, treatment, procedures, and medical decision making performed by me.
[2019-03-19 12:11] LABS: Alanine Aminotransferase 82 U/L (12-78); Alkaline Phosphatase 73 U/L (45-117); Aspartate Aminotransferase 11 U/L (15-37); BUN Creatinine Ratio 15.1 (10-20); Bilirubin,Total 0.3 mg/dl (0.2-1); Blood Urea Nitrogen 8 mg/dl (7-18); Calcium 8.6 mg/dl (8.5-10.1); Carbon Dioxide 27 mmol/L (21-32); Chloride 109 mmol/L (98-107); Creatinine Clr Calc Pharmacy 130.1 ml/min; Est GFR (African American) > 150.0; Glucose 106 mg/dl (70-99); Potassium 3.7 mmol/L (3.5-5.1); Sodium 141 mmol/L (136-145)
[2019-03-19] MEDS ORDERED: [UNRECOGNIZED DRUG - REMARK] ONE (15:21)
--- NOTE | 2019-03-19 18:18 | Hospitalist Progress Note ---
Date of Service March 19, 2019 Assessment & Plan (1) Overdose by acetaminophen: -Due to lack of cooperation it is uncertain the amount she took -per admission it is reported only 5. This may have been with the addition of Aleve and aspirin. She is known to take methamphetamine, benzodiazepines and marijuana on other occasions. Tox screen is positive for amphetamines and marijuana and awaiting further identification -It appears this was done with intent to cause self-harm however patient will not discuss this with me -Per report this event stemmed from a break-up with her boyfriend --Suggested intent for self-harm comes from text messages to her boyfriend and mother -It appears her ALT will likely peak at 112 as it is currently trending down and it 82 -completed acetylcysteine protocol per recommendations from poison control --Due to improving LFTs acetylcysteine will stop after current infusion ends which should be around 1500 -Mild QTC prolongation on initial EKG -we will repeat EKG in a.m. -Continue suicide precautions with one-to-one -Psychiatry following -discussed with psychiatric nurse liaison -currently there is a 302 warrant and therefore not permitted to leave the hospital at this time and this will be reevaluated --Patient had one other voluntary stay at the [facility] in 2017 but only remained there x2 days due to not participating in activities and parents took her home --At that time, she was prescribed Lexapro but reports feeling drowsy and therefore did not continue taking this Pending no further increase in ALT on a.m. labs and physical assessment -patient likely will be medically cleared for further evaluation for psychiatric treatment. Patient's mother can be reached at [phone] has number listed under contacts is an accurate Present on Admission?: Yes Supervising Physician Co-Signing Physician Notes I have seen and examined patient with Johanna Roberto and agree with the assessment and plan. Physical Exam Constitutional: WD/WN, vitals as above Eyes: PERRLA, EOMI, + anicteric sclerae ENMT: Ears: + hearing impairment Neck: trachea midline Respiratory: normal respiratory effort, lungs clear to auscultation Cardiovascular: Rate/Rhythm: regular rate and regular rhythm Heart Sounds: no murmur Gastrointestinal (Abdomen): Inspection/Auscultation: normal bowel sounds Percussion/Palpation: abdomen soft; abdomen nontender Musculoskeletal: Head/Neck/Chest: normocephalic and head atraumatic Left- handed and arm in splint and Enoc wrap Neurologic: moves all extremities Psychiatric:Pt was uncooperative at first but then accepted to take medication and cooperate with plan of treatment after I spoke to her dad over the phone. Poor historian, depressed but not suicidal at this time. Subjective Multiple visits with patient today. With permission from patient to discuss with her mother and father. Patient minimally conversant and largely keeps her blanket pulled over her face. No eye contact during discussion. She remains calm but short with me. She does not want to repeat herself or talk about the events leading to her hospitalization. She was initially not cooperative with acetylcysteine and assessment. She did agree to finish antidote and have repeat testing. Only mild elevation of ALT at 112 and currently trending down. She does have a mild QT prolongation on EKG and will repeat in the morning. Due to improving and ALT Poison control recommends to complete current dosing and can stop after current infusion ends. We will repeat ALT in the morning. Updated patient and mother at bedside on these results. Did discuss with psychiatric nurse liaison. Currently patient has a 302 warrant and therefore cannot leave the hospital. Suspect patient will be medically optimized for reevaluation of inpatient psychiatric care tomorrow. Review of Systems Review of Systems: Unobtainable due to lack of cooperation Physical Exam Physical Exam: Patient refused physical exam. Patient talks with 1-2 word answers and makes no eye contact. On occasion is laying in bed with blankets pulled over her head. She is calm but sounds irritable. Affect is extremely flat. She appears in no acute distress. Results & Data Vital Signs (Past 12 Hours) Vital Signs Pulse Resp BP Pulse Ox 03/19/19 07:49 78 14 109/73 98 PG Care Time/CCT Total # of Minutes Spent Total Time Spent with Patient: Total time spent is greater than 50% in coordination of care (as documented) at patient's floor/unit and/or counseling patient:
[2019-03-20 06:32] LABS: INR 1.1 (0.9-1.1); Prothrombin Time 11.4 Seconds (9.0-12.0)
[2019-03-20 06:52] LABS: Alanine Aminotransferase 66 U/L (12-78); Albumin Level 2.9 gm/dl (3.4-5.0); Aspartate Aminotransferase 12 U/L (15-37); BUN Creatinine Ratio 20.3 (10-20); Blood Urea Nitrogen 11 mg/dl (7-18); Calcium 8.2 mg/dl (8.5-10.1); Carbon Dioxide 26 mmol/L (21-32); Chloride 108 mmol/L (98-107); Creatinine Clr Calc Pharmacy 127.8 ml/min; Est GFR (African American) > 150.0; Est GFR (Non-African American) 135.2; Glucose 87 mg/dl (70-99); Potassium 3.9 mmol/L (3.5-5.1); Sodium 139 mmol/L (136-145)
[2019-03-20 06:55] LABS: Albumin Globulin Ratio 0.9 (0.9-2); Alkaline Phosphatase 72 U/L (45-117); Bilirubin,Total 0.3 mg/dl (0.2-1); Globulin 3.1 gm/dl (2.5-4.0)
--- NOTE | 2019-03-20 15:32 | Psychiatric Progress Note ---
Date of Service March 20, 2019 Impression / Recommendations Impression 18-year-old female with a history of depression and substance abuse who presented after an intentional polydrug overdose with elevated acetaminophen level and LFT elevation. She initially reported the overdose was an attempt to harm herself, but is now minimizing and yesterday removed her IV and said she was leaving, so a 302 warrant was issued. She has been consistently uncooperative and minimizing throughout her stay, demonstrates impaired judgment and behavioral dyscontrol, and agree with recommendations for psychiatric hospitalization. She is now medically cleared and on a 302 involuntary commitment, awaiting placement. Reviewed the case with Johanna Gao PA-C. Encouraged patient to engage in treatment and her mother to support her in that process, as it is clear that she could benefit from mental health treatment and then stepdown to outpatient services. Risk Factors Assessment Male: No : Yes Health Problems: No Mental Health Diagnoses: Yes Substance Use Disorders: Yes Previous Attempt: No Previous Psychiatric Hospitalization: Yes Subjective Subjective Met with patient and mother at mother's request. Reviewed record and initial psychiatric consultation from yesterday. ER note indicates the patient reported an intentional overdose on approximately 5 tablets each of aspirin and acetaminophen in an attempt to hurt herself. Her mother stated this was likely due to her recent break-up with her boyfriend. She also stated the patient has a history of depression for which she is prescribed medication, but refuses to take it. ALT was 112, toxicology screen notable for acetaminophen level of 88, and positive for amphetamine/methamphetamine and THC. She was admitted to the hospitalist service and received NAC, and was uncooperative with the hospitalist's admission interview. Per the attendings note, the patient "was texting her boyfriend and her mother, she kept saying she cannot do this she can not live with this anymore as she was breaking up with her boyfriend, finally her mom told her that do not do anything wrong, she texted her mother it is too late. After that she kept texting the boyfriend but not the mother,, suddenly the boyfriend texted the mother that she has done something wrong and somebody needs to check on her. The mother called the neighbors who went to check on her and found empty bottles around her." Collateral information from her mother was that the patient "took Aleve and ASA as well as Tylenol and that she also uses drugs regularly including methamphetamine, benzodiazepines, and marijuana. She also has a history of depression initially diagnosed while inpatient at [facility] when she was [age] in the fall of 2016. She at that time was physically threatening and aggressive with her mother and required inpatient treatment for being out of her head. She was sent home with a script for Lexapro but refused to take these because they made her tired. She has no history of previous suicide attempts or any self harm. The hospitalization mentioned above is her only one. She has no other past medical history and takes only control. She was living with boyfriend until recently, but apparently has been using methamphetamine and being promiscuous with other men while boyfriend was at work and they broke up. She is now living with Mom." The patient was poorly cooperative with Dr. Cardona's assessment as well, stating she was not going to talk about it, felt fine and wanted to go home. Inpatient treatment was recommended. Yesterday morning, she disconnected her IV fluids and stated she was leaving, and a 302 warrant was issued. This morning, she was medically cleared and the 302 commitment completed by the attending physician. Physical Exam Psychiatric Orientation: alert and cooperative Apperance: + disheveled and appeared stated age Eye Contact: + poor eye contact Motor Behavior: no abnormal motor movements minimal, occasionally interjects, yells expletives Affect: + angry affect Insight: + limited insight Judgement: + limited judgement Vital Signs (Past 24 Hours) Last Vital Signs Temp 36.6 C 03/19/19 22:42 Pulse 90 03/19/19 22:42 Resp 18 03/19/19 22:42 BP 108/69 03/19/19 22:42 Pulse Ox 98 03/19/19 22:42 Results & Data Laboratory Results Laboratory Results - last 24 hr 03/20/19 03/20/19 05:48 05:48 PT 11.4 INR 1.1 Sodium 139 Potassium 3.9 Chloride 108 H Carbon Dioxide 26 Anion Gap 5.0 BUN 11 Creatinine 0.56 L Est Cr Clr Drug Dosing 127.8 Est GFR ( Amer) > 150.0 Est GFR (Non-Af Amer) 135.2 BUN/Creatinine Ratio 20.3 H Glucose 87 Calcium 8.2 L Total Bilirubin 0.3 AST 12 L ALT 66 Alkaline Phosphatase 72 Total Protein 6.0 L Albumin 2.9 L Globulin 3.1 Albumin/Globulin Ratio 0.9 Current Inpatient Medications Current Inpatient Medications: Current Inpatient Medications Enoxaparin Sodium (Lovenox) 40 mg SQ Q24H MARIIA Stop: 04/17/19 20:59 Last Admin: 03/18/19 21:45 Dose: Not Given Documented by:
--- NOTE | 2019-03-20 20:42 | Discharge Summary ---
Date of Service March 20, 2019 Admission HPI Per Admitting Provider Fernanda Angeles is a 18 year old young woman with a PMH significant for depression who presents today for an intentional drug overdose. Patient very reticent to speak, not answering in more than one or two words. She tells me she took "about five" tylenol. Denies anything else, denies any history of substance use, tells me she feels fine and wants to go home. She does admit to trying to harm herself, she said that she is getting over a break up with her long time boyfriend and took the pills to try to hurt herself. She is not sure if she wanted to kill herself. She initally did not tell anyone but then told her mother. She tells me she feels safe at home and that she wants her mom involved in her care. I spoke to the patient's mother separately from the patient and she tells me that she took aleve and ASA as well as tylenol and that she also uses drugs regularly including methamphetamine, benzos and marijuana. She also has a history of depression initially diagnosed while inpatient at [facility] when she was [age] in the fall of 2016. She at that time was physically threatening and aggressive with her mother and required inpatient treatment for being out of her head. She was sent home with a script for lexapro but refused to take these because they made her tired. She has no hisory of previous suicide attempts or any self harm. The hospitalization mentioned above is her only one. She has no other past medical history and takes only control. She was living with boyfriend until recently, but apparently has been using methamphetamine and being promiscuous with other men while boyfriend was at work and they broke up. She is now living with Mom. Principal Diagnosis Inappropriate Tylenol/Substance Intake with Intent for Self Harm; Polysubstance Use Discharge Exam Constitutional She is laying in bed with blankets pulled over her head. When spoke to she did pull the blankets down and did make some eye contact which is improved from 03/19 Respiratory no respiratory distress Psychiatric Orientation: alert and oriented x 3 Eye Contact: + poor eye contact Speech: + mute Rather flat affect but when discussing 302 she was tearful/crying Discharge Data Allergies Allergy/AdvReac Type Severity Reaction Status Date / Time No Known Allergies Allergy Verified 03/18/19 16:24 Consultations 03/18/19 17:04 ED Decision to Admit Stat 03/18/19 20:20 Consult Psychiatry Routine Hospital Course (1) Overdose by acetaminophen: -Per admission it is reported only 5 tablets taken. This may have been with the addition of Aleve and aspirin. She is known to take methamphetamine, benzodiazepines and marijuana on other occasions. Tox screen is positive for amphetamines and marijuana and awaiting further identification -It appears this was done with intent to cause self-harm however patient will not discuss this with me -Per report this event stemmed from a break-up with her boyfriend --Suggested intent for self-harm comes from text messages to her boyfriend and mother -Her ALT peaked at 112 and is normalized today at 66 - completed acetylcysteine protocol per recommendations from poison control and they have signed off case -Continued suicide precautions with one-to-one -Psychiatry followed -discussed with psychiatric nurse liaison/provider - 302 was signed as patient only agreeable to outpatient help --[facility] but only remained there x2 days due to not participating in activities and parents took her home --At that time, she was prescribed Lexapro but reports feeling drowsy and therefore did not continue taking this -Can Help involved with placement and she was accepted to facility in [place]; Medically is cleared for further psychiatric treatment -Patient's mother can be reached at [phone] as number listed under contacts is an accurate Total Time Total Time Spent Total Time Spent (In Minutes): Greater than 30 minutes Discharge Plan Discharge Items Patient Disposition: Transfer Behavioral Health Fac Reason For Visit: OVERDOSE ATTEMPT Discharge Diagnosis: Inappropriate Tylenol intake with intent for self-harm Activity: Resume your previous activity Non-emergency contact: Primary Care Provider Call non-emergency contact if: you have any medication questions, your symptoms worsen and you have a fever Follow-up/Referrals: PCP,NO [Primary Care Provider] - Diet: Regular Addtl Attending Provider Instructions: Inappropriate Tylenol Intake with Intent for Self Harm: - Reported intake of 5 tablets of Tylenol possibly with Aleve and Aspirin. ALT peaked at 112 but with acetylcysteine this did trend down to 82 and now normalized at 66 on morning labs on 03/20 -- INR slightly elevated at 1.2 on admission but now normal at 1.1 - Acetylcysteine protocol completed during admission and Poison Control input was obtained - Patient was seen by psychiatry during admission. Due to requests to leave and initially not cooperative with treatment plan. A 302 warrant was obtained and wa s signed suggesting inpatient psychiatric treatment. - Tylenol level 88 on admission prior to NAC protocol; salicylates < 1.7; alcohol level is negative for consumption - Tox Screen positive for amphetamine/methamphetamine with differentiation labs pending; positive for marijuana - TSH is 1.050 and within normal limits - Lexapro was used in the past however this made her drowsy. Pending Studies at Discharge: Yes Studies:: Methamphetamine/Amphetamine differentiation Stand-Alone Forms: My [facility] Speak With Me, Suicide Prevention Resources Skilled Items DNR: No Lines: None Urinary Catheter: No Medications and DC Order Prescriptions: No Action Unobtainable RF: 0 Discharge Orders: Discharge Order (Routine); Ordered 03/20/19 Ordered By: Johanna Gao Admission Data Admit Date/Time: 03/18/19 18:43 Attending Provider: Divine Ramos Admit Provider: Roger Lugo Primary Care Provider: PCP,NO Other Providers: Ella Shelton ; Carissa Sharp Other Interventions: Discharge Summary Assessment (RN) Last Done: 03/20/19 18:45 DC Date/Time DO NOT enter until pt leaves facility: 03/20/19 21:01 Supervising Physician Co-Signing Physician Notes I have seen and examined patient with Johanna Roberto and agree with the discharge summary. Physical Exam Constitutional: WD/WN, vitals as above Eyes: PERRLA, EOMI, + anicteric sclerae ENMT: Ears: + hearing impairment Neck: trachea midline Respiratory: normal respiratory effort, lungs clear to auscultation Cardiovascular: Rate/Rhythm: regular rate and regular rhythm Heart Sounds: no murmur Gastrointestinal (Abdomen): Inspection/Auscultation: normal bowel sounds Percussion/Palpation: abdomen soft; abdomen nontender Musculoskeletal: Head/Neck/Chest: normocephalic and head atraumatic Left- handed and arm in splint and Enoc wrap Neurologic: moves all extremities Psychiatric:Pt is going to be transferred to the inpatient psychiatry due to continuous suicidal thoughts , worsening depression.
[2019-03-21 14:43] LABS: Amphetamine Urine, Confirm 3280 ng/mL (<250); Marijuana Quant, GCMS Urine 334 ng/mL (<5); Methamphetamine, Ur Confirm 14200 ng/mL (<250)
== END 2019-03-20 21:01 | DRG 918 ==
LOC: ED 15:52 → MERGE 15:52 → 4W 18:43 → SUATTDRO 18:43 → 4W 19:53

== ENCOUNTER 2023-08-08 08:14 | Inpatient (IN) ==
[2023-08-08] MEDS: LACTATED RINGER'S 1,000 ML IV PRN (08:22)
[2023-08-08] MEDS ORDERED: LIDOCAINE 1% LOCAL 20 ML VIAL INFIL PRN (08:23)
--- NOTE | 2023-08-08 08:26 | History & Physical Report ---
Date of Service August 08, 2023 Assessment & Plan (1) 37 weeks gestation of : Plan: Admit All labs Urine tox GBS swab Epidural if patient requests (2) Limited care in third trimester: Plan: Unable to get records History of Present Illness Chief Complaint: Ctx Primary Care Provider: NO PCP Patient is a at 37 2/7 (SHERITA 08/27/2023) by stated SHERITA who came for contractions starting at 6am and LOF. Prenetal care in [place] (no records). Has never had GBS swab taken. Missed many visits due "to my grandfather dying". Denies any drug, EtOH or tobacco use. Denies any STDs. First -denies any SAB, terminations. Denies any medical problem-review of records show Hx suicide attempt with Tylenol overdose in 2019 Allergies Allergy/AdvReac Type Severity Reaction Status Date / Time No Known Allergies Allergy Verified 08/08/23 08:39 Home Medications Medication Instructions Recorded Confirmed Type vits no.124-ferrous fum 1 tab PO DAILY 08/08/23 08/08/23 History 27 mg iron-folic acid 800 mcg tablet ( Vitamin) Patient History Medical History Suicide attempt Elevated alanine aminotransferase (ALT) level Overdose Tylenol overdose Overdose by acetaminophen Depression Surgical History No pertinent past surgical history Family History Other No pertinent family history Social History Smoking Status: Never smoker Second Hand Exposure: No; Do You Dip or Chew Tobacco: No; Hx Alcohol Use: No (Denies) Hx Substance Use: No (Denies) Preferred Language: Wallisian Communication Ability: Effective Gun Perforator Loader Required: No Beliefs That Will Affect Care: None Current Living Situation: Parent Feels Safe at Home: Yes Assistive Devices: None 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
[2023-08-08 09:19] LABS: Hematocrit (blood only) 38.2 % (37.0-47.0); Hemoglobin 13.4 g/dl (12.0-16.0); Mean Corpuscular Hemoglobin 35.4 pg (25.0-34.0); Mean Corpuscular Hgb Conc 35.1 g/dL (32.0-36.0); Mean Corpuscular Volume 101.1 fL (80.0-100.0); Mean Platelet Volume 11.9 fL (9.4-12.4); Platelet Count 185 K/uL (130-400); RDW Coefficient of Variation 12.3 % (11.5-14.5); RDW Standard Deviation 45.8 fL (36.4-46.3); Red Blood Count 3.78 M/uL (4.20-5.40)
[2023-08-08] MEDS: OXYTOCIN 30 UNITS/NSS 30 UNITS/500 ML BAG IV PRN (09:32)
[2023-08-08 09:35] LABS: Alanine Aminotransferase 40 U/L (7-52); Albumin Globulin Ratio 1.2 (0.9-2); Albumin Level 3.6 gm/dl (3.4-5.0); Alkaline Phosphatase 178 U/L (34-104); Anion Gap 7 (3-11); Aspartate Aminotransferase 35 U/L (13-39); BUN Creatinine Ratio 15.8 (10-20); Bilirubin,Total 0.4 mg/dl (0.2-1.0); Blood Urea Nitrogen 9 mg/dl (6-23); Calcium 8.3 mg/dl (8.6-10.3); Carbon Dioxide 21 mmol/L (21-32); Chloride 107 mmol/L (98-107); Est GFR (African American) > 150.0 ml/min; Est GFR (Non-African American) 129.8 ml/min; Globulin 2.9 gm/dl (2.5-4.0); Glucose 101 mg/dl (70-99(Fasting)); Potassium 3.6 mmol/L (3.5-5.1); Sodium 135 mmol/L (136-145); Total Protein 6.5 gm/dl (6.0-8.3)
[2023-08-08 09:41] LABS: Amphetamines+Metham, Urine Pos (Neg); Barbiturates, Urine Neg (Neg); Benzodiazepine, Urine Neg (Neg); Cocaine, Urine Neg (Neg); MDMA (Ecstacy), Urine Neg (Neg); Marijuana, Urine Pos (Neg); Methadone, Urine Neg (Neg); Opiate, Urine Neg (Neg); Phencyclidine, Urine Neg (Neg)
[2023-08-08] MEDS ORDERED: bisacodyL 10 MG SUPP PR PRN (09:42)
[2023-08-08] MEDS ORDERED: OXYTOCIN 30 UNITS/NSS 30 UNITS/500 ML BAG IV PRN (09:42)
[2023-08-08] MEDS ORDERED: HYDROCORTISONE ACETATE 25 MG SUPP PR PRN (09:42)
--- NOTE | 2023-08-08 09:46 | Delivery Summary ---
Vaginal Delivery Summary Date of Service August 08, 2023 Vaginal Delivery Summary Delivery Note History synopsis: Patient is a 23-year-old G1, P1 at 37 and 2 by stated SHERITA who presented for labor with spontaneous rupture of membranes. Patient had gotten care in [place], had not had any records to review upon admission. States she is gone to visits but missed several due to her grandfather dying recently. Denies any drug use. But at time of delivery states she used marijuana vape pen. Urine tox screen on admission was positive for amphetamines/methamphetamines and marijuana Labor Course: Patient changed from 5 cm to anterior lip and then was complete and I was called for delivery Patient was found to be hypothermic with a rectal temperature of 34.6 on admission Delivery Summary: Patient was placed in the dorsal lithotomy position. She was prepped and draped in the usual sterile fashion. Upon maternal pushing the head was delivered atraumatically followed by the anterior shoulders, posterior shoulders then the remainder of the infants body. The was immediately placed on mother's abdomen, dried and stimulated. Cord was immediately clamped and baby was handed off to pediatric staff. A male was delivered at 0927 weight pending with APGARS of 8 at 1 minute and 9 at 5 minutes. Cord blood gases were (not) obtained. The placenta delivered intact with three vessel cord. Placenta was sent to pathology. Thirty units of Pitocin were added to the IV fluid and allowed to run freely. Uterine massage was performed until uterus was deemed firm. Upon inspection of the perineum, vagina and cervix were intact. Upon re-inspection the patient was hemostatic. Uterus again massaged and found to be firm. Needle and sponge counts were correct. Repeat rectal temperature was 32.6. Baby was noted to be hypothermic at this time as well and taken to special care nursery Darell salinas was applied on patient Patient was stable and allowed to recover in L&D room. Infant was stable and remained in room with mother in the labor and delivery unit.
[2023-08-08 10:01] LABS: Rubella IgG Ab Immune (Immune); Rubella IgG Qnt 24.1 IU/mL
[2023-08-08] MEDS: ePHEDrine sulfate 50 MG/ML AMP ONE (10:13)
[2023-08-08] MEDS: fentaNYL citrate PF 100 MCG/2 ML VIAL ONE (10:13)
[2023-08-08] MEDS: fentANYL 2 MCG/ML BUPIVacaine 0.125%-NSS 100ML BAG ONE (10:13)
[2023-08-08] MEDS: BUPIVACAINE 0.25% PF 30 ML VIAL ONE (10:14)
[2023-08-08] MEDS: LIDOCAINE 2%/EPINEPHRINE 1:200,000 20 ML PF ONE (10:14)
[2023-08-08] MEDS: SODIUM CHLORIDE 0.9% PF INJ 10 ML VIAL ONE (10:14)
[2023-08-08 15:00] LABS: Chlam trach RNA(Genit,Ureth,Ur Not Detected (NotDetected); GC(Neis gon)RNA(Genit,Ureth,Ur Not Detected (NotDetected)
[2023-08-08] MEDS: BENZOCAINE 20% SPRY 85 APPLN/85 GM CAN EXT PRN (16:41)
[2023-08-08] MEDS: IBUPROFEN 600 MG TAB PO PRN (16:41)
[2023-08-08] MEDS: DIPHTHER/TETAN/PERTUS Vaccine (Tdap, Adol/Adult) 0.5mL IM ONE (16:42)
[2023-08-08] MEDS: ACETAMINOPHEN 325 MG TAB PO PRN (18:38)
[2023-08-08] MEDS: DOCUSATE SODIUM 100 MG CAP PO SCH (21:11)
[2023-08-09 06:43] LABS: Hematocrit (blood only) 33.6 % (37.0-47.0); Hemoglobin 11.8 g/dl (12.0-16.0); Mean Corpuscular Hemoglobin 35.3 pg (25.0-34.0); Mean Corpuscular Hgb Conc 35.1 g/dL (32.0-36.0); Mean Corpuscular Volume 100.6 fL (80.0-100.0); Mean Platelet Volume 11.5 fL (9.4-12.4); Platelet Count 178 K/uL (130-400); RDW Coefficient of Variation 12.2 % (11.5-14.5); RDW Standard Deviation 44.8 fL (36.4-46.3); Red Blood Count 3.34 M/uL (4.20-5.40); White Blood Count 12.46 K/ul (4.8-10.8)
--- NOTE | 2023-08-09 07:56 | Obstetrical Progress Note ---
Date of Service August 09, 2023 Assessment & Plan (1) Normal course: Continue routine care Case management pending Discussed safe sleep practices as patient is never to sleep with infant in the bed with them, she voiced her understanding Anticipate discharge home tomorrow if doing well (2) Positive urine drug screen: Positive for marijuana and methamphetamines, confirmation CYS will be informed Subjective Ambulation: ambulating normally Voiding: no voiding problems Passing Gas:: Yes Diet Tolerance:: regular diet Lochia:: Small Feeding Type:: bottle feeding Current Pain Level(1-10): 0 Patient was sleeping with partner in bed, baby currently in nursery Was able to arouse the patient awake, no complaints at this time Review of Systems All systems reviewed & are unremarkable except as noted in HPI & below Physical Exam Constitutional WD/WN, vitals as above Respiratory normal respiratory effort, lungs clear to auscultation Cardiovascular RRR, no murmur, no edema Gastrointestinal (Abdomen) normal bowel sounds, soft, nontender, no hepatosplenomegaly Results & Data Vital Signs (Past 12 Hours) Vital Signs Temp Pulse Resp BP Pulse Ox O2 Del Method 08/09/23 02:45 36.5 C 70 18 111/70 98 Room Air 08/08/23 23:30 36.8 C 65 16 107/65 98 Room Air Laboratory Results Laboratory Results WBC 12.46 K/ul (4.8-10.8) H 08/09/23 06:19 RBC 3.34 M/uL (4.20-5.40) L 08/09/23 06:19 Hgb 11.8 g/dl (12.0-16.0) L 08/09/23 06:19 Hct 33.6 % (37.0-47.0) L 08/09/23 06:19 MCV 100.6 fL (80.0-100.0) H 08/09/23 06:19 MCH 35.3 pg (25.0-34.0) H 08/09/23 06:19 MCHC 35.1 g/dL (32.0-36.0) 08/09/23 06:19 RDW Std Deviation 44.8 fL (36.4-46.3) 08/09/23 06:19 RDW Coeff of Loly 12.2 % (11.5-14.5) 08/09/23 06:19 Plt Count 178 K/uL (130-400) 08/09/23 06:19 MPV 11.5 fL (9.4-12.4) 08/09/23 06:19 Sodium 135 mmol/L (136-145) L 08/08/23 08:35 Potassium 3.6 mmol/L (3.5-5.1) 08/08/23 08:35 Chloride 107 mmol/L (98-107) 08/08/23 08:35 Carbon Dioxide 21 mmol/L (21-32) 08/08/23 08:35 Anion Gap 7 (3-11) 08/08/23 08:35 BUN 9 mg/dl (6-23) 08/08/23 08:35 Creatinine 0.57 mg/dl (0.6-1.2) L 08/08/23 08:35 Est Cr Clr Drug Dosing 137.0 ml/min 08/08/23 08:35 Est GFR ( Amer) > 150.0 ml/min 08/08/23 08:35 Est GFR (Non-Af Amer) 129.8 ml/min 08/08/23 08:35 BUN/Creatinine Ratio 15.8 (10-20) 08/08/23 08:35 Glucose 101 mg/dl (70-99(Fasting)) H 08/08/23 08:35 Calcium 8.3 mg/dl (8.6-10.3) L 08/08/23 08:35 Total Bilirubin 0.4 mg/dl (0.2-1.0) 08/08/23 08:35 AST 35 U/L (13-39) 08/08/23 08:35 ALT 40 U/L (7-52) 08/08/23 08:35 Alkaline Phosphatase 178 U/L (34-104) H 08/08/23 08:35 Total Protein 6.5 gm/dl (6.0-8.3) 08/08/23 08:35 Albumin 3.6 gm/dl (3.4-5.0) 08/08/23 08:35 Globulin 2.9 gm/dl (2.5-4.0) 08/08/23 08:35 Albumin/Globulin Ratio 1.2 (0.9-2) 08/08/23 08:35 Urine Opiates Screen Neg (Neg) 08/08/23 08:20 Ur Methadone, Qual Neg (Neg) 08/08/23 08:20 Urine Barbiturates Neg (Neg) 08/08/23 08:20 Ur Phencyclidine (PCP) Neg (Neg) 08/08/23 08:20 U Amphetamin/Meth Scrn Pos (Neg) H 08/08/23 08:20 MDMA (Ecstasy) Screen Neg (Neg) 08/08/23 08:20 U Benzodiazepines Scrn Neg (Neg) 08/08/23 08:20 Ur Cocaine Metabolite Neg (Neg) 08/08/23 08:20 U Marijuana (THC) Screen Pos (Neg) H 08/08/23 08:20 C.trachomatis RNA Not Detected (NotDetected) 08/08/23 08:20 N.gonorrhoeae RNA Not Detected (NotDetected) 08/08/23 08:20 Rubella IgG Antibody Immune (Immune) 08/08/23 08:35 Rubella IgG Ab Index 24.1 IU/mL 08/08/23 08:35 Blood Type O Positive 08/08/23 08:36 Antibody Screen NEGATIVE 08/08/23 08:36
[2023-08-09] MEDS: PRENATAL VITAMIN 1 TAB PO SCH (08:18)
[2023-08-09 09:37] LABS: HBSAG NON-REACTIVE (NON-REACTIVE)
[2023-08-09] MEDS: bisacodyL 5 MG TABEC PO SCH (20:02)
[2023-08-10 06:13] LABS: Hematocrit (blood only) 34.3 % (37.0-47.0); Hemoglobin 12.1 g/dl (12.0-16.0)
--- NOTE | 2023-08-10 11:28 | Obstetrical Progress Note ---
Date of Service August 10, 2023 Assessment & Plan (1) Limited care in third trimester: PPD #2 pt doing well d/c home with instructions following CYS [place] (2) 37 weeks gestation of : (3) Positive urine drug screen: (4) Hypothermia: Subjective Ambulation: ambulating normally Voiding: no voiding problems Passing Gas:: Yes Diet Tolerance:: regular diet Lochia:: Small Feeding Type:: breast feeding Review of Systems All systems reviewed & are unremarkable except as noted in HPI & below Physical Exam Constitutional WD/WN, vitals as above well developed and well nourished Eyes PERRL, conjunctivae normal, anicteric sclerae Neck trachea midline, no thyromegaly Respiratory normal respiratory effort, lungs clear to auscultation Auscultation: no crackles, no rales and no wheezes Cardiovascular RRR, no murmur, no edema Gastrointestinal (Abdomen) normal bowel sounds, soft, nontender, no hepatosplenomegaly Uterus is below umbilicus Musculoskeletal no cyanosis or clubbing, extremities motor strength 5/5 Skin no rashes, warm and dry Neurologic patellar DTR's 2+ bilat, sensation intact Psychiatric A+Ox3, euthymic affect Genitourinary normal external appearance Results & Data Vital Signs (Past 12 Hours) Vital Signs Temp Pulse Resp BP Pulse Ox O2 Del Method 08/10/23 07:35 36.7 C 85 18 107/71 98 Room Air
== END 2023-08-10 13:30 | disposition home health service (06) | DRG 807 ==
LOC: OPB 08:14 → 4S1 08:15 → 4E2 13:55